=== PATIENT | female | born 1995 | race African-American/Black ===

== ENCOUNTER 2022-08-09 10:07 | Emergency (ER) | payer MEDICAID ==
[~2022-08-09] VITALS: Ht 147.3 cm; Wt 77.6 kg
[2022-08-09 10:21] VITALS: BP 124/73
[2022-08-09] MEDS ORDERED: CLIN300C52 PO (11:58)
--- NOTE | 2022-08-09 12:14 | NUR ---
PATIENT LEFT WITHOUT DISCHARGE PAPERWORK
== END 2022-08-09 12:14 | disposition home or self-care (01) ==
LOC: MED 10:07
DX: K11.8 Other diseases of salivary glands (principal)
CPT/HCPCS: 81025; 99283